=== PATIENT | female | born 1985 | race Caucasian/White ===

== ENCOUNTER 2024-07-05 12:10 | Inpatient (IN) | payer MEDICARE, MEDICAID ==
[~2024-07-05] VITALS: Ht 167.6 cm; Wt 108.9 kg
[2024-07-05] MEDS ORDERED: DiphenhydrAMINE HCL 50 MG/ML VIAL IM ONE (12:30)
[2024-07-05] MEDS ORDERED: HALOPERIDOL LACTATE 5 MG/ML VIAL IM ONE (12:30)
[2024-07-05] MEDS ORDERED: LORazepam 2 MG/ML VIAL IM ONE (12:30)
[2024-07-05 12:42] LABS: BASOPHILS % (AUTO) 0.4 % (0.0-2.0); EOSINOPHILS % (AUTO) 0.1 % (1.0-6.0); HEMATOCRIT 35.7 % (36-46); HEMOGLOBIN 11.9 g/dL (12.0-16.0); LYMPHOCYTES # (AUTO) 1.7 K/uL (1.0-4.8); LYMPHOCYTES % (AUTO) 17.3 % (22.0-44.0); MEAN CORPUSCULAR HEMOGLOBIN 29.6 pg (26.0-34.0); MEAN CORPUSCULAR HGB CONC 33.2 G/dL (31.0-37.0); MEAN CORPUSCULAR VOLUME 89 fL (80-100); MONOCYTES # (AUTO) 0.4 K/uL (0.1-1.0); NEUTROPHILS # (AUTO) 7.9 K/uL (1.8-7.7); NEUTROPHILS % (AUTO) 78.2 % (40.0-70.0); PLATELET COUNT (AUTO) 318 K/uL (150-450); RED BLOOD CELL COUNT(AUTO) 4.01 MIL/uL (4.00-5.20); RED CELL DISTRIBUTION WIDTH 14.3 % (11.5-14.5); WHITE BLOOD COUNT (AUTO) 10.1 K/uL (4.5-11.0)
[2024-07-05 12:47] LABS: ANION GAP 8 mmol/L (8-16); CALCIUM, TOTAL 9.3 mg/dL (8.8-10.5); CARBON DIOXIDE 28 mmol/L (22-29); CHLORIDE 101 mmol/L (98-107); CREATININE 1.56 mg/dL (0.60-1.30); GLOMERULAR FILTR. RATE CALC 37 mL/min (>60); GLUCOSE,RANDOM 98 mg/dL (70-110); POTASSIUM 3.6 mmol/L (3.5-5.1); SODIUM SERUM 137 mmol/L (136-145); UREA NITROGEN, BLOOD 19 mg/dL (7-18)
[2024-07-05 13:06] LABS: ALCOHOL, BLOOD (SERUM) < 3 mg/dL (0-10)
[2024-07-05 13:29] LABS: COVID AG,FIA SOURCE NASAL SWAB
[2024-07-05 13:47] LABS: PH,URINE DRUG SCREEN 5.5 (5.0-8.0)
[2024-07-05 13:59] LABS: ALCOHOL, URINE DRUG SCREEN NEGATIVE (NEGATIVE); AMPHET/METH SCREEN,URINE POSITIVE (NEGATIVE); BARBITURATE SCREEN, URINE NEGATIVE (NEGATIVE); BENZODIAZEPINES SCREEN,URINE NEGATIVE (NEGATIVE); CANNABINOID SCREEN,URINE NEGATIVE (NEGATIVE); COCAINE SCREEN,URINE NEGATIVE (NEGATIVE); METHADONE SCREEN, URINE POSITIVE (NEGATIVE); OPIATE SCREEN,URINE NEGATIVE (NEGATIVE); PHENCYCLIDINE SCREEN,URINE NEGATIVE (NEGATIVE)
[2024-07-05 14:07] LABS: SARS-COV2 (COVID) ANTIGEN,FIA Negative (Negative)
[2024-07-05] MEDS ORDERED: ZOLPIDEM TARTRATE 10 MG TABLET PO PRN (14:45)
[2024-07-05 19:02] VITALS: O2SAT 99
[2024-07-05 21:15] VITALS: BP 151/98; PULSE 87; RESP 18; TEMP 98.1; O2SAT 99
[2024-07-05 22:15] VITALS: RESP 16
[2024-07-05 23:15] VITALS: BP 138/74; PULSE 85; RESP 18; TEMP 99.1; O2SAT 97
[2024-07-06] VITALS (9 sets, daily range): BP systolic 111–142; BP diastolic 68–88; PULSE 78–86; RESP 16–17; TEMP 98.4–99.5; O2SAT 95–97
[2024-07-06] MEDS ORDERED: MAG HYDROX/ALUMINUM HYD/SIMETH ES 30 ML SUSPENSION UDCUP PO PRN (06:45)
[2024-07-06] MEDS ORDERED: ALBUTEROL SULFATE HFA 90 MCG/PUFF 8 GM INHALER IH PRN (06:45)
[2024-07-06] MEDS ORDERED: OMEPRAZOLE 20 MG CAPSULE PO PRN (06:45)
[2024-07-06] MEDS ORDERED: LOPERAMIDE HCL 2 MG CAPSULE PO PRN (06:45)
[2024-07-06] MEDS ORDERED: BACITRACIN 28 GM OINTMENT TP PRN (06:45)
[2024-07-06] MEDS ORDERED: CloNIDine HCL 0.1 MG TABLET PO PRN (06:45)
[2024-07-06] MEDS ORDERED: PETROLATUM,WHITE 28 GM JELLY TP PRN (06:45)
[2024-07-06] MEDS ORDERED: DOCUSATE SODIUM 100 MG CAPSULE PO PRN (06:45)
[2024-07-06] MEDS ORDERED: BENZOCAINE/MENTHOL [CEPACOL] LOZENGE PO PRN (06:45)
[2024-07-06] MEDS ORDERED: ONDANSETRON 4 MG TABLET PO PRN (06:45)
[2024-07-06] MEDS ORDERED: MAGNESIUM HYDROXIDE SUSPENSION 30 ML UDCUP PO PRN (06:45)
[2024-07-06] MEDS: LORazepam 2 MG TABLET PO PRN (09:03)
[2024-07-06] MEDS: IBUPROFEN 600 MG TABLET PO PRN (11:41)
[2024-07-06] MEDS: INFLUENZA VIRUS VACCINE TVS (6MO+) 2024-25/PF 45 MCG/0.5 ML SYRINGE IM. ONE (13:06)
[2024-07-06] MEDS: RisperiDONE 1 MG TABLET PO SCH (16:41)
[2024-07-06] MEDS: METHADONE HCL 10 MG TABLET PO ONE (17:46)
[2024-07-06] MEDS: HALOPERIDOL 5 MG TABLET PO PRN (19:11)
[2024-07-07 08:37] VITALS: RESP 17
[2024-07-07] MEDS ORDERED: METHADONE HCL 10 MG TABLET PO SCH (09:00)
[2024-07-07] MEDS: METHADONE HCL 10 MG/5 ML SOLUTION ORAL.SYG PO SCH (09:24)
[2024-07-07 20:17] VITALS: BP 105/60; PULSE 71; RESP 16; TEMP 97.2; O2SAT 95
[2024-07-08] MEDS: ACETAMINOPHEN 325 MG TABLET PO PRN (08:11)
[2024-07-08 08:17] VITALS: BP 124/84; PULSE 76; RESP 17; TEMP 97.4; O2SAT 98
[2024-07-08 09:11] VITALS: RESP 16
[2024-07-08 20:05] VITALS: BP 142/86; PULSE 78; RESP 17; TEMP 98.1; O2SAT 98
[2024-07-09] MEDS ORDERED: DiphenhydrAMINE HCL 50 MG/ML VIAL ONE (07:54)
[2024-07-09] MEDS ORDERED: HALOPERIDOL LACTATE 5 MG/ML VIAL ONE (07:54)
[2024-07-09] MEDS ORDERED: LORazepam 2 MG/ML VIAL ONE (07:54)
[2024-07-09] MEDS: HALOPERIDOL LACTATE 5 MG/ML VIAL IM ONE (08:11)
[2024-07-09] MEDS: LORazepam 2 MG/ML VIAL IM ONE (08:12)
[2024-07-09] MEDS: DiphenhydrAMINE HCL 50 MG/ML VIAL IM ONE (08:12)
[2024-07-09 08:21] LABS: ALBUMIN 3.4 g/dL (3.4-5.0); BILIRUBIN,TOTAL 0.3 mg/dL (0.1-1.0); CALCIUM, TOTAL 9.3 mg/dL (8.8-10.5); CHOL/HDL RATIO 3.5 (3.9-5.7); CREATININE 1.4 mg/dL (0.60-1.30); POTASSIUM 4.4 mmol/L (3.5-5.1); THYROID STIMULATING HORMONE 1.69 uIU/mL (0.36-3.74); TOTAL PROTEIN, SERUM 7.8 g/dL (6.4-8.2)
[2024-07-09 20:16] VITALS: RESP 18
[2024-07-10] MEDS: METHADONE HCL 10 MG/5 ML SOLUTION ORAL.SYG PO SCH (06:27)
[2024-07-10 08:35] VITALS: BP 132/82; PULSE 79; RESP 17; TEMP 98.1; O2SAT 99
[2024-07-10] MEDS: ARIPiprazole 10 MG TABLET PO SCH (09:17)
[2024-07-10 20:04] VITALS: BP 107/59; PULSE 71; RESP 18; TEMP 97.6; O2SAT 99
[2024-07-11 08:42] VITALS: BP 130/63; PULSE 76; RESP 18; TEMP 97.8; O2SAT 99
[2024-07-12 08:20] VITALS: BP 100/64; PULSE 67; RESP 17; TEMP 97.5; O2SAT 95
[2024-07-12] MEDS ORDERED: ARIP10TA38 PO (13:31)
== END 2024-07-12 17:00 | disposition home or self-care (01) | DRG 885 ==
LOC: EMS 12:11 → B2X 21:29
PROVIDERS: ADMIT Psychiatry & Neurology Psychiatry; ATTEND Psychiatry & Neurology Psychiatry
DX: F31.9 Bipolar disorder, unspecified (principal); N18.9 Chronic kidney disease, unspecified; F11.20 Opioid dependence, uncomplicated; Z20.822 Contact with and (suspected) exposure to COVID-19; I12.9 Hypertensive chronic kidney disease with stage 1 through stage 4 chronic kidney disease, or unspecified chronic kidney disease; F15.10 Other stimulant abuse, uncomplicated; K59.00 Constipation, unspecified; F41.9 Anxiety disorder, unspecified; Z91.51 Personal history of suicidal behavior
CPT/HCPCS: 80048; 80053; 80061; 80307; 84443; 84703; 85025; 99285; G0480; J1200; J1630; J2060

== ENCOUNTER 2024-07-22 10:33 | Inpatient (IN) | payer MEDICARE, MEDICAID ==
[~2024-07-22] VITALS: Ht 154.9 cm; Wt 108.5 kg
[~2024-07-22 10:33] MED LIST: ARIP10TA38 PO
[2024-07-22 13:46] LABS: GLUCOMETER DEV NAME(LOC) POC.BV; POC SARS-COV2 AG, FIA NEGATIVE (NEGATIVE)
[2024-07-22 15:19] VITALS: BP 132/82; PULSE 84; RESP 18; TEMP 97.3; O2SAT 97
[2024-07-22] MEDS ORDERED: HALOPERIDOL LACTATE 5 MG/ML VIAL ONE (16:24)
[2024-07-22] MEDS ORDERED: LORazepam 2 MG/ML VIAL ONE (16:24)
[2024-07-22] MEDS ORDERED: DiphenhydrAMINE HCL 50 MG/ML VIAL ONE (16:24)
[2024-07-22] MEDS: HALOPERIDOL LACTATE 5 MG/ML VIAL IM ONE (16:51)
[2024-07-22] MEDS: LORazepam 2 MG/ML VIAL IM ONE (16:51)
[2024-07-22] MEDS: DiphenhydrAMINE HCL 50 MG/ML VIAL IM ONE (16:52)
[2024-07-22] MEDS: LITHIUM CARBONATE 300 MG CAPSULE PO SCH (17:19)
[2024-07-22] MEDS: DIVALPROEX SODIUM 500 MG DR TABLET PO SCH (17:19)
[2024-07-22 20:47] VITALS: BP 110/69; PULSE 66; RESP 16; TEMP 97; O2SAT 97
[2024-07-23 08:02] LABS: HEMOGLOBIN A1C 5.2 % (3.8-5.6)
[2024-07-23 08:06] LABS: BASOPHILS % (AUTO) 0.4 % (0.0-2.0); EOSINOPHILS % (AUTO) 1.6 % (1.0-6.0); HEMATOCRIT 33.6 % (36-46); HEMOGLOBIN 11.2 g/dL (12.0-16.0); LYMPHOCYTES # (AUTO) 2.9 K/uL (1.0-4.8); LYMPHOCYTES % (AUTO) 33.2 % (22.0-44.0); MEAN CORPUSCULAR HEMOGLOBIN 30.6 pg (26.0-34.0); MEAN CORPUSCULAR HGB CONC 33.2 G/dL (31.0-37.0); MEAN CORPUSCULAR VOLUME 92 fL (80-100); MONOCYTES # (AUTO) 0.4 K/uL (0.1-1.0); MONOCYTES % (AUTO) 4.7 % (2.0-9.0); NEUTROPHILS # (AUTO) 5.3 K/uL (1.8-7.7); NEUTROPHILS % (AUTO) 60.1 % (40.0-70.0); PLATELET COUNT (AUTO) 279 K/uL (150-450); RED BLOOD CELL COUNT(AUTO) 3.65 MIL/uL (4.00-5.20); RED CELL DISTRIBUTION WIDTH 15.5 % (11.5-14.5); WHITE BLOOD COUNT (AUTO) 8.9 K/uL (4.5-11.0)
[2024-07-23 08:16] VITALS: BP 109/65; PULSE 78; RESP 17; TEMP 97.2; O2SAT 98
[2024-07-23 08:21] LABS: BILIRUBIN,TOTAL 0.4 mg/dL (0.1-1.0); CALCIUM, TOTAL 8.9 mg/dL (8.8-10.5); CHOL/HDL RATIO 3.5 (3.9-5.7); CREATININE 1.51 mg/dL (0.60-1.30); FREE T4 (FREE THYROXINE) 1.13 ng/dL (0.76-1.46); POTASSIUM 4.5 mmol/L (3.5-5.1); THYROID STIMULATING HORMONE 1.29 uIU/mL (0.36-3.74); TOTAL PROTEIN, SERUM 7.2 g/dL (6.4-8.2)
[2024-07-23] MEDS: ARIPiprazole 15 MG TABLET PO SCH (08:47)
[2024-07-23] MEDS ORDERED: OMEPRAZOLE 20 MG CAPSULE PO PRN (15:30)
[2024-07-23] MEDS ORDERED: MAG HYDROX/ALUMINUM HYD/SIMETH ES 30 ML SUSPENSION UDCUP PO PRN (15:30)
[2024-07-23] MEDS ORDERED: ACETAMINOPHEN 325 MG TABLET PO PRN (15:30)
[2024-07-23] MEDS ORDERED: LOPERAMIDE HCL 2 MG CAPSULE PO PRN (15:30)
[2024-07-23] MEDS ORDERED: BACITRACIN 28 GM OINTMENT TP PRN (15:30)
[2024-07-23] MEDS ORDERED: CloNIDine HCL 0.1 MG TABLET PO PRN (15:30)
[2024-07-23] MEDS ORDERED: ONDANSETRON 4 MG TABLET PO PRN (15:30)
[2024-07-23] MEDS ORDERED: PETROLATUM,WHITE 28 GM JELLY TP PRN (15:30)
[2024-07-23] MEDS ORDERED: BENZOCAINE/MENTHOL [CEPACOL] LOZENGE PO PRN (15:30)
[2024-07-23] MEDS ORDERED: ALBUTEROL SULFATE HFA 90 MCG/PUFF 8 GM INHALER IH PRN (15:30)
[2024-07-23 20:19] VITALS: BP 105/63; PULSE 74; RESP 18; TEMP 97.9; O2SAT 98
[2024-07-24] MEDS: METHADONE HCL 10 MG TABLET PO SCH (08:07)
[2024-07-24 08:23] LABS: APPEARANCE,URINE CLEAR (CLEAR); BILIRUBIN,URINE NEGATIVE (NEGATIVE); COLOR,URINE LIGHT YELLOW (YELLOW); GLUCOSE, URINE (UA) NEGATIVE (NEGATIVE); KETONES,URINE NEGATIVE (NEGATIVE); LEUKOCYTE ESTERASE ,URINE TRACE (NEGATIVE); NITRATE,URINE NEGATIVE (NEGATIVE); OCCULT BLOOD,URINE NEGATIVE (NEGATIVE); PROTEIN,URINE TRACE mg/dL (NEGATIVE); SPECIFIC GRAVITIY, URINE 1.017 (1.003-1.030); UROBILINOGEN,URINE <=1.0 mg/dL (<=1.0)
[2024-07-24 08:28] LABS: ALCOHOL, URINE DRUG SCREEN NEGATIVE (NEGATIVE); AMPHET/METH SCREEN,URINE POSITIVE (NEGATIVE); BARBITURATE SCREEN, URINE NEGATIVE (NEGATIVE); BENZODIAZEPINES SCREEN,URINE NEGATIVE (NEGATIVE); CANNABINOID SCREEN,URINE NEGATIVE (NEGATIVE); COCAINE SCREEN,URINE NEGATIVE (NEGATIVE); METHADONE SCREEN, URINE POSITIVE (NEGATIVE); OPIATE SCREEN,URINE NEGATIVE (NEGATIVE); PHENCYCLIDINE SCREEN,URINE NEGATIVE (NEGATIVE)
[2024-07-24 09:12] VITALS: BP 135/75; PULSE 74; RESP 18; TEMP 98; O2SAT 98
[2024-07-24 09:57] LABS: BACTERIA,URINE None Seen /HPF (None Seen); RBC,URINE None Seen /HPF (0-2); SQUAMOUS EPITHELIAL CELL,UR None Seen /LPF (None Seen); WBC,URINE None Seen /HPF (0-5)
[2024-07-24] MEDS: LORazepam 2 MG TABLET PO PRN (10:12)
[2024-07-24] MEDS: MAGNESIUM HYDROXIDE SUSPENSION 30 ML UDCUP PO PRN (13:58)
[2024-07-24 20:08] VITALS: BP 124/78; PULSE 81; RESP 18; TEMP 97.8; O2SAT 100
[2024-07-24] MEDS: ZOLPIDEM TARTRATE 10 MG TABLET PO PRN (20:22)
[2024-07-25 08:36] VITALS: BP 110/59; PULSE 77; RESP 15; TEMP 97.5; O2SAT 97
[2024-07-25] MEDS: HALOPERIDOL 5 MG TABLET PO PRN (16:20)
[2024-07-25 20:29] VITALS: BP 122/77; PULSE 73; RESP 16; TEMP 97.3; O2SAT 100
[2024-07-26] MEDS: METHADONE HCL 10 MG TABLET PO SCH (08:07)
[2024-07-26 08:16] VITALS: BP 123/71; PULSE 88; RESP 18; TEMP 97.3; O2SAT 99
[2024-07-26 08:18] VITALS: BP 110/60; PULSE 88; RESP 18; TEMP 97.3; O2SAT 99
[2024-07-26 08:19] LABS: LITHIUM 0.55 mmol/L (0.60-1.20)
[2024-07-26 08:36] LABS: CALCIUM, TOTAL 8.5 mg/dL (8.8-10.5); CREATININE 1.47 mg/dL (0.60-1.30); POTASSIUM 4.7 mmol/L (3.5-5.1)
[2024-07-26 20:07] VITALS: BP 114/79; PULSE 81; RESP 19; TEMP 98.4; O2SAT 98
[2024-07-26] MEDS: MELATONIN 3 MG TABLET PO SCH (20:36)
[2024-07-27] MEDS: DOCUSATE SODIUM 100 MG CAPSULE PO PRN (08:14)
[2024-07-27 08:36] VITALS: BP 112/60; PULSE 78; RESP 16; TEMP 97.6; O2SAT 99
[2024-07-27 09:54] VITALS: RESP 17; O2SAT 99
[2024-07-27] MEDS: IBUPROFEN 600 MG TABLET PO PRN (09:54)
[2024-07-27 10:54] VITALS: RESP 17; O2SAT 99
[2024-07-28 11:24] VITALS: BP 116/60; PULSE 76; RESP 18; TEMP 97.9; O2SAT 99
[2024-07-29 09:33] VITALS: BP 120/88; PULSE 92; RESP 18; TEMP 97.1; O2SAT 98
[2024-07-29 20:37] VITALS: BP 103/50; PULSE 82; RESP 18; TEMP 97.9; O2SAT 98
[2024-07-29 21:40] VITALS: RESP 16
[2024-07-30 09:17] LABS: ALBUMIN 2.9 g/dL (3.4-5.0); BILIRUBIN,TOTAL 0.2 mg/dL (0.1-1.0); CALCIUM, TOTAL 8.6 mg/dL (8.8-10.5); CREATININE 1.45 mg/dL (0.60-1.30); POTASSIUM 4.6 mmol/L (3.5-5.1)
[2024-07-30 10:40] VITALS: BP 101/50; PULSE 98; RESP 16; TEMP 97.9; O2SAT 100
[2024-07-30 20:09] VITALS: BP 147/90; PULSE 80; RESP 17; TEMP 98.2; O2SAT 98
[2024-07-31 11:17] VITALS: BP 130/76; PULSE 83; RESP 18; TEMP 97.7; O2SAT 100
[2024-07-31] MEDS ORDERED: LITH300C3 PO (11:44)
[2024-07-31] MEDS ORDERED: DIVA-112 PO (11:46)
== END 2024-07-31 12:00 | disposition home or self-care (01) | DRG 885 ==
LOC: B2X 13:59
PROVIDERS: ADMIT Psychiatry & Neurology Psychiatry; ATTEND Psychiatry & Neurology Psychiatry
DX: F20.9 Schizophrenia, unspecified (principal); N18.9 Chronic kidney disease, unspecified; F11.20 Opioid dependence, uncomplicated; R45.851 Suicidal ideations; Z20.822 Contact with and (suspected) exposure to COVID-19; I12.9 Hypertensive chronic kidney disease with stage 1 through stage 4 chronic kidney disease, or unspecified chronic kidney disease; F19.10 Other psychoactive substance abuse, uncomplicated; K59.00 Constipation, unspecified; F41.9 Anxiety disorder, unspecified
CPT/HCPCS: 80048; 80053; 80061; 80164; 80178; 80307; 81001; 83036; 84439; 84443; 84702; 84703; 85025; 87081; J1200; J1630; J2060

== ENCOUNTER 2025-01-17 06:44 | Inpatient (IN) | payer MEDICARE, MEDICAID ==
[~2025-01-17 06:44] MED LIST changes: +DIVA-112 PO; +LITH300C3 PO
[2025-01-17] MEDS ORDERED: DOCUSATE SODIUM 100 MG CAPSULE PO PRN (09:30)
[2025-01-17] MEDS ORDERED: ALBUTEROL SULFATE HFA 90 MCG/PUFF 8 GM INHALER IH PRN (09:30)
[2025-01-17] MEDS ORDERED: MAG HYDROX/ALUMINUM HYD/SIMETH ES 30 ML SUSPENSION UDCUP PO PRN (09:30)
[2025-01-17] MEDS ORDERED: ONDANSETRON 4 MG TABLET PO PRN (09:30)
[2025-01-17] MEDS ORDERED: ACETAMINOPHEN 325 MG TABLET PO PRN (09:30)
[2025-01-17] MEDS ORDERED: PETROLATUM,WHITE 28 GM JELLY TP PRN (09:30)
[2025-01-17] MEDS ORDERED: BACITRACIN 28 GM OINTMENT TP PRN (09:30)
[2025-01-17] MEDS ORDERED: MAGNESIUM HYDROXIDE SUSPENSION 30 ML UDCUP PO PRN (09:30)
[2025-01-17] MEDS ORDERED: NICOTINE POLACRILEX 4 MG LOZENGE PO PRN (09:30)
[2025-01-17] MEDS ORDERED: BENZOCAINE/MENTHOL [CEPACOL] LOZENGE PO PRN (09:30)
[2025-01-17] MEDS ORDERED: LOPERAMIDE HCL 2 MG CAPSULE PO PRN (09:30)
[2025-01-17] MEDS ORDERED: OMEPRAZOLE 20 MG CAPSULE PO PRN (09:30)
[2025-01-17 09:36] LABS: GLUCOMETER DEV NAME(LOC) POC.BV; POC SARS-COV2 AG, FIA NEGATIVE (NEGATIVE)
[2025-01-17 11:26] VITALS: BP 121/91; PULSE 90; RESP 14; TEMP 98.8; O2SAT 99
[2025-01-17] MEDS: PERMETHRIN 5% 60 GM CREAM TP ONE (12:50)
[2025-01-17] MEDS: DIVALPROEX SODIUM 500 MG DR TABLET PO SCH (16:35)
[2025-01-17] MEDS: LITHIUM CARBONATE 300 MG CAPSULE PO SCH (16:35)
[2025-01-17 20:15] VITALS: BP 137/88; PULSE 89; RESP 18; TEMP 98.4; O2SAT 98
[2025-01-18 08:37] VITALS: BP 148/95; PULSE 75; RESP 17; TEMP 97.8; O2SAT 98
[2025-01-18 09:33] LABS: PLATELET COUNT (AUTO) 306 K/uL (150-450); RED BLOOD CELL COUNT(AUTO) 3.58 MIL/uL (4.00-5.20); RED CELL DISTRIBUTION WIDTH 14.3 % (11.5-14.5); WHITE BLOOD COUNT (AUTO) 12.2 K/uL (4.5-11.0)
[2025-01-18 09:54] LABS: APPEARANCE,URINE TURBID (CLEAR); GLUCOSE, URINE (UA) NEGATIVE (NEGATIVE); LEUKOCYTE ESTERASE ,URINE NEGATIVE (NEGATIVE); NITRATE,URINE NEGATIVE (NEGATIVE); OCCULT BLOOD,URINE TRACE (NEGATIVE); PH,URINE DRUG SCREEN 5.5 (5.0-8.0); SPECIFIC GRAVITIY, URINE 1.017 (1.003-1.030)
[2025-01-18 09:54] LABS: ASPARTATE AMINOTRANSFERASE 21 U/L (15-37); CALCIUM, TOTAL 9.2 mg/dL (8.8-10.5); CHOL/HDL RATIO 4.7 (3.9-5.7); CREATININE 1.57 mg/dL (0.60-1.30); GLOMERULAR FILTR. RATE CALC 37 mL/min (>60); GLUCOSE,RANDOM 100 mg/dL (70-110); HCG,QUANTITATIVE < 1 mIU/mL (0-6); LDL CHOL (CALC.) 142 mg/dL (0-130); SODIUM SERUM 140 mmol/L (136-145); TOTAL PROTEIN, SERUM 8.5 g/dL (6.4-8.2); UREA NITROGEN, BLOOD 18 mg/dL (7-18)
[2025-01-18 10:02] LABS: ALCOHOL, BLOOD (SERUM) < 3 mg/dL (0-10)
[2025-01-18 10:11] LABS: ALCOHOL, URINE DRUG SCREEN NEGATIVE (NEGATIVE); AMPHET/METH SCREEN,URINE NEGATIVE (NEGATIVE); BARBITURATE SCREEN, URINE NEGATIVE (NEGATIVE); CANNABINOID SCREEN,URINE NEGATIVE (NEGATIVE); COCAINE SCREEN,URINE NEGATIVE (NEGATIVE); METHADONE SCREEN, URINE POSITIVE (NEGATIVE)
[2025-01-18 10:19] LABS: SULFOSALICYLIC ACID,URINE 2+ (Negative)
[2025-01-18 10:20] LABS: AMORPHOUS SEDIMENT,UR Many /LPF (None Seen)
[2025-01-18 20:07] VITALS: PULSE 89; RESP 17; TEMP 97.9; O2SAT 98
[2025-01-19 08:32] VITALS: BP 123/94; PULSE 92; RESP 18; TEMP 98.2; O2SAT 96
[2025-01-19 09:58] LABS: APPEARANCE,URINE CLEAR (CLEAR); GLUCOSE, URINE (UA) NEGATIVE (NEGATIVE); LEUKOCYTE ESTERASE ,URINE NEGATIVE (NEGATIVE); NITRATE,URINE NEGATIVE (NEGATIVE); OCCULT BLOOD,URINE NEGATIVE (NEGATIVE); SPECIFIC GRAVITIY, URINE 1.013 (1.003-1.030)
[2025-01-19 10:09] LABS: SULFOSALICYLIC ACID,URINE 3+ (Negative)
[2025-01-19 10:10] LABS: SQUAMOUS EPITHELIAL CELL,UR Few /LPF (None Seen)
[2025-01-19 11:35] VITALS: BP 129/98; PULSE 91; RESP 18; TEMP 97.8; O2SAT 98
[2025-01-19] MEDS: IBUPROFEN 600 MG TABLET PO PRN (11:40)
[2025-01-19] MEDS: METHADONE HCL 10 MG TABLET PO SCH (11:40)
[2025-01-19] MEDS: ZOLPIDEM TARTRATE 10 MG TABLET PO PRN (21:47)
[2025-01-20] MEDS: METHADONE HCL 10 MG/5 ML SOLUTION ORAL.SYG PO SCH (08:07)
[2025-01-20 08:10] VITALS: BP 126/96; PULSE 91; RESP 18; TEMP 98.4; O2SAT 100
[2025-01-20 20:28] VITALS: BP 112/61; PULSE 88; RESP 18; TEMP 97.8; O2SAT 99
[2025-01-21 08:41] VITALS: RESP 16
[2025-01-21 10:32] VITALS: BP 118/69; PULSE 89; RESP 18; TEMP 98.2; O2SAT 99
[2025-01-21 20:11] VITALS: RESP 18
[2025-01-22 08:19] VITALS: BP 153/83; PULSE 80; RESP 19; TEMP 98.2; O2SAT 99
[2025-01-22 21:44] VITALS: BP 101/58; PULSE 82; RESP 16; TEMP 98.4; O2SAT 99
[2025-01-23 08:32] VITALS: BP 130/83; PULSE 83; RESP 18; TEMP 98.4; O2SAT 96
[2025-01-31] MEDS ORDERED: PERMETHRIN 1% 60 ML LOTION TP PRN (12:30)
== END 2025-01-23 11:45 | disposition home or self-care (01) | DRG 885 ==
LOC: B2X 08:21
PROVIDERS: ADMIT Psychiatry & Neurology Psychiatry; ATTEND Psychiatry & Neurology Psychiatry
DX: F20.9 Schizophrenia, unspecified (principal); N18.9 Chronic kidney disease, unspecified; F11.20 Opioid dependence, uncomplicated; Z59.00 Homelessness unspecified; I12.9 Hypertensive chronic kidney disease with stage 1 through stage 4 chronic kidney disease, or unspecified chronic kidney disease; J45.909 Unspecified asthma, uncomplicated; B85.2 Pediculosis, unspecified; F41.9 Anxiety disorder, unspecified; K59.00 Constipation, unspecified; G47.00 Insomnia, unspecified; F19.10 Other psychoactive substance abuse, uncomplicated; Z20.822 Contact with and (suspected) exposure to COVID-19; Z79.899 Other long term (current) drug therapy
CPT/HCPCS: 80053; 80061; 80307; 81001; 81002; 83036; 84436; 84443; 84702; 85025; 86592; G0480